=== PATIENT | male | born 1995 | race Caucasian/White ===

== ENCOUNTER → 2021-07-11 | Outpatient (CLI) | payer OTHER, SELFPAY | END | disposition home or self-care (01) | LOC: LABSPEC 15:04 | PROVIDERS: Referring Provider Family Medicine; Visit Provider Family Medicine | DX: Z20.828 Contact with and (suspected) exposure to other viral communicable diseases (principal) | CPT/HCPCS: 87635; U0005; U0003 ==

== ENCOUNTER 2021-11-27 10:21 | Outpatient (CLI) | payer OTHER, SELFPAY | END 2021-11-27 23:59 | disposition short-term general hospital (02) | LOC: SL 10:21 | PROVIDERS: Visit Provider Family Medicine | DX: G47.33 Obstructive sleep apnea (adult) (pediatric) (principal) | CPT/HCPCS: 95806 ==

== ENCOUNTER 2022-01-29 20:02 | Outpatient (CLI) | payer OTHER, SELFPAY | END 2022-01-29 23:59 | disposition home or self-care (01) | PROVIDERS: Visit Provider Family Medicine | DX: G47.33 Obstructive sleep apnea (adult) (pediatric) (principal) | CPT/HCPCS: 95810 ==

== ENCOUNTER → 2022-05-24 | Outpatient (CLI) | payer OTHER, SELFPAY | END | disposition home or self-care (01) | LOC: SL 15:57 | PROVIDERS: Visit Provider Family Medicine | DX: Z46.89 Encounter for fitting and adjustment of other specified devices (principal) ==